=== PATIENT | female | born 1940 | race Caucasian/White ===

== ENCOUNTER → 2016-10-28 | Outpatient (CLI) | payer OTHER ==
--- NOTE | 2016-10-28 13:39 | DX ---
DEXA Bone Mineral Densitometry Clinical Indications: Postmenopausal, screening for osteoporosis Comparison: None Technique: Bone Mineral Densitometry (BMD) by Dual Energy X-Ray Absorptiometry (DEXA) was performed utilizing the [employer] scanner. The lumbar spine was evaluated in the AP projection. The bilat eral hips and forearm were evaluated in the AP projection. Vertebral fracture assessment was also pe rformed. AP Lumbar Spine: The L1, L2 and L3 vertebral bodies were evaluated. L4 is excluded due to degenerati ve sclerosis. BMD: 1.314 gm/cm2 T-score: 1.1 SD Z-score: 2.3 SD AP Left Hip: Neck BMD: 0.870 gm/cm2 T-score: -1.2 SD Z-score: 0.3 SD AP Right Hip: Neck BMD: 0.823 gm/cm2 T-score: -1.5 SD Z-score: 0 SD AP Left Forearm, 09/29: BMD: 0.825 gm/cm2 T-score: -0.6 SD Z-score: 1.6 SD Vertebral Fracture Assessment: There are mild compressions between T6 and T9 associated with a promi nent thoracic kyphosis.. Atherosclerotic calcification of the abdominal aorta likely increases lumbar BMD. Conclusion: Considering the lowest measured site, the patient has low bone density. The ten year FRAX risk for any major osteoporotic fracture is 10.9% and for a hip fracture is 2.1%. Any bone loss in this patient is probably related to aging or estrogen deficiency. Assuming that the thoracic compressions are chronic and related to known severe trauma, then the foll owing applies: To prevent osteoporosis and to promote the patient's bone density, the following recommendations shou ld be considered: 1. Pursue a regular regimen of weightbearing and muscle strengthening exercises in order to reduce t he risk of falls and fractures (as tolerated by the patient's general medical condition). 2. Ensure that daily dietary calcium uptake is maximized. 3. Consider checking the serum vitamin D level. Ensure that intake of vitamin D is 800 IU per day (f or ages 71 and older). 4. Consider follow-up DEXA scan in two years to assess the rate of bone loss in this patient.
== END ==
LOC: FIMAGING 11:18
PROVIDERS: ATTEND Family Medicine
DX: Z13.820 Encounter for screening for osteoporosis (principal); M85.80 Other specified disorders of bone density and structure, unspecified site; Z78.0 Asymptomatic menopausal state

== ENCOUNTER → 2016-12-04 | Outpatient (CLI) | payer OTHER ==
[~2016-12-04] MED LIST: GADOBUTROL 10 ML VIAL IVP ONE
[2016-12-04 13:44] LABS: CREATININE 1.4 mg/dL (0.6-1.0)
== END ==
LOC: FIMAGING 12:45
PROVIDERS: ATTEND Family Medicine
DX: D17.24 Benign lipomatous neoplasm of skin and subcutaneous tissue of left leg (principal); M76.02 Gluteal tendinitis, left hip; D25.9 Leiomyoma of uterus, unspecified
CPT/HCPCS: 73720; A9585

== ENCOUNTER → 2017-07-19 | Outpatient (CLI) | payer OTHER | LOC: BMCIMAGING 12:03 | PROVIDERS: ATTEND Family Medicine | DX: Z12.31 Encounter for screening mammogram for malignant neoplasm of breast (principal) | CPT/HCPCS: G0202 ==

== ENCOUNTER → 2018-06-02 | Outpatient (CLI) | payer OTHER | LOC: BMCIMAGING 08:58 | PROVIDERS: ATTEND Obstetrics & Gynecology | DX: N95.0 Postmenopausal bleeding (principal); D25.9 Leiomyoma of uterus, unspecified ==

== ENCOUNTER → 2018-06-27 | Outpatient (CLI) | payer OTHER | LOC: BMCIMAGING 12:53 | PROVIDERS: ATTEND Internal Medicine Nephrology | DX: N18.3 Chronic kidney disease, stage 3 (moderate) (principal) ==

== ENCOUNTER → 2018-12-09 | Outpatient (CLI) | payer OTHER | LOC: FIMAGING 09:28 | PROVIDERS: ATTEND Family Medicine | DX: M51.36 Other intervertebral disc degeneration, lumbar region (principal); M43.16 Spondylolisthesis, lumbar region; M53.86 Other specified dorsopathies, lumbar region; M53.3 Sacrococcygeal disorders, not elsewhere classified; M25.551 Pain in right hip; M25.552 Pain in left hip ==

== ENCOUNTER → 2018-12-15 | Outpatient (CLI) | payer OTHER | LOC: FIMAGING 14:48 | PROVIDERS: ATTEND Registered Nurse | DX: M79.672 Pain in left foot (principal) ==

== ENCOUNTER → 2018-12-22 | Outpatient (CLI) | payer OTHER | LOC: FIMAGING 14:00 | PROVIDERS: ATTEND Family Medicine | DX: R60.9 Edema, unspecified (principal) ==

== ENCOUNTER → 2019-03-15 | Outpatient (CLI) | payer OTHER | LOC: FIMAGING 09:14 ==

== ENCOUNTER → 2019-03-22 | Outpatient (CLI) | payer OTHER | LOC: FIMAGING 12:18 ==

== ENCOUNTER → 2019-03-24 | Outpatient (CLI) | payer OTHER | LOC: FIMAGING 09:50 ==